=== PATIENT | female | born 1960 ===

== ENCOUNTER 2016-11-15 04:21 | Emergency (ER) | payer SELFPAY ==
--- NOTE | 2016-11-15 04:28 | C.PDOC ---
History Of Present Illness Patient presents with some right sided chest pain since yesterday. Patient states she has dextrocadia. No n/v/. atient also states she has had some fever. Speaking in complete sentences Time Seen by Provider: 11/15/16 04:27 History Per: Patient History/Exam Limitations: no limitations Onset/Duration Of Symptoms: Days Current Symptoms Are (Timing): Still Present Context: Other Severity: Moderate Pain Scale Rating Of: 4 Quality: Dull, Aching Associated Symptoms: denies: Nausea, Dyspnea Modifying Factors: None Exacerbating Factors: None Alleviating Factors: None Recent travel outside of the [place] States: No Additional History Per: Family Past Medical History Reviewed: Historical Data, Nursing Documentation, Vital Signs Vital Signs: Last Vital Signs Temp 99.7 F H 11/15/16 06:29 Pulse 97 H 11/15/16 06:29 Resp 18 11/15/16 06:29 BP 111/67 11/15/16 06:29 Pulse Ox 95 11/15/16 06:29 Family History: States: No Known Family Hx Review Of Systems Constitutional: Negative for: Fever, Chills Eyes: Negative for: Redness ENT: Negative for: Throat Pain Cardiovascular: Negative for: Chest Pain, Palpitations Respiratory: Negative for: Shortness of Breath Gastrointestinal: Negative for: Nausea, Vomiting Genitourinary: Negative for: Dysuria Musculoskeletal: Negative for: Back Pain Skin: Negative for: Rash, Lesions Neurological: Negative for: Weakness Psych: Negative for: Anxiety Physical Exam - Physical Exam Appears: Non-toxic Skin: Warm, Dry Head: Normacephalic Eye(s): bilateral: Normal Inspection Oral Mucosa: Moist Neck: Supple Chest: Symmetrical, Tenderness (right sided ) Cardiovascular: Rhythm Regular Respiratory: No Rales, No Rhonchi, No Wheezing Gastrointestinal/Abdominal: Soft, No Tenderness Back: No CVA Tenderness Extremity: Normal ROM Extremity: Bilateral: Atraumatic, Normal Color And Temperature Pulses: Left Dorsalis Pedis: Normal, Right Dorsalis Pedis: Normal Neurological/Psych: Oriented x3, Normal Speech, Normal Cognition Gait: Steady ED Course And Treatment - Laboratory Results Result Diagrams: 11/15/16 04:50 11/15/16 04:50 ECG: Interpreted By Me, Viewed By Me ECG Rhythm: Sinus Rhythm (98), R BBB O2 Sat by Pulse Oximetry: 98 Pulse Ox Interpretation: Normal - Radiology CXR: Interpreted by Me, Viewed By Me Progress Note: r sided ekg nsr 97 bpm, rbbb, nsstt changes Disposition Counseled Patient/Family Regarding: Studies Performed, Diagnosis - Disposition Disposition Time: 04:28 Condition: FAIR - Clinical Impression Clinical Impression: Chest pain, Fever Physician Patient Turnover Patient Signed Over To: Lon Pantoja Handoff Comments: pending cxr, ua and re-eval/dispo
[2016-11-15] MEDS ORDERED: Aspirin 325 mg EC Tablets PO STA (04:43)
[2016-11-15 04:53] LABS: BASO % 0.7 % (0.0-2.0); EOS % 0.5 % (0.0-4.0); HEMATOCRIT 37.5 % (34.0-47.0); LYMPH # 0.3 K/uL (1.0-4.3); LYMPH % 5.3 % (20.0-40.0); MEAN CELL VOLUME 84.2 fL (81.0-99.0); MEAN CORPUSCULAR HEMOGLOBIN 28.6 pg (27.0-31.0); MEAN CORPUSCULAR HGB CONC 33.9 g/dL (33.0-37.0); MEAN PLATELET VOLUME 7.5 fL (7.2-11.7); MONO # 0.6 K/uL (0.0-0.8); MONO % 8.7 % (0.0-10.0); PLATELET COUNT 199 K/uL (130-400); RED CELL DISTRIBUTION WIDTH 14.6 % (11.5-14.5); WHITE BLOOD COUNT 6.5 K/uL (4.8-10.8)
[2016-11-15 05:00] LABS: INR 1.1
[2016-11-15 05:08] LABS: CHLORIDE 102 mmol/L (98-107); SODIUM 140 mmol/L (132-148)
[2016-11-15 05:11] LABS: ALB/GLOB RATIO 1.2 (1.0-2.1); ALKALINE PHOSPHATASE 105 U/L (38-126); ALT/SGPT 58 U/L (9-52); AST/SGOT 36 U/L (14-36); BILIRUBIN,TOTAL 0.5 mg/dL (0.2-1.3); BLOOD UREA NITROGEN 17 mg/dL (7-17); CALCIUM 9.3 mg/dl (8.6-10.4); CARBON DIOXIDE 21 mmol/L (22-30); GFR AFRICAN-AMERICAN > 60; GLUCOSE,RANDOM 126 mg/dL (65-105); TOTAL PROTEIN 7.9 g/dL (6.3-8.3)
[2016-11-15 06:18] LABS: EOSINOPHIL 1 % (0-4); NEUTROPHIL 84 % (50-75); TOTAL CELLS COUNTED 100
[2016-11-15 07:33] LABS: RBC URINE 1 /hpf (0-3); URINE BILIRUBIN NEGATIVE (NEGATIVE); URINE BLOOD 1+ (NEGATIVE); URINE COLOR Yellow (YELLOW); URINE GLUCOSE (UA) NORMAL (Normal); URINE KETONE NEGATIVE (NEGATIVE); URINE LEUKOCYTE ESTERASE NEG Leu/uL (Negative); URINE PROTEIN NEGATIVE (NEGATIVE); URINE UROBILINOGEN NORMAL mg/dL (0.2-1.0); WBC URINE < 1 /hpf (0-5)
--- NOTE | 2016-11-15 07:36 | RAD ---
PROCEDURE: CHEST RADIOGRAPH, 1 VIEW HISTORY: fever COMPARISON: None available. FINDINGS: LUNGS: There is volume loss of the right lung with hazy density at the inferior lung zones suggestive of probable atelectasis although infiltrate is not completely excluded. No air bronchograms are identified. Small right pleural effusion identified but thoracostomy sulcus. Left chest appears clear. Mediastinal shift is slight toward the right but the patient is also rotated toward the right. No pneumothorax PLEURA: Discussed above. CARDIOVASCULAR: Cardiac size appears normal. Left hilar vascular markings appears somewhat prominent but there is no definite cephalization appreciate this time. This may be a function rotation to the right. Follow-up chest radiography advised. OSSEOUS STRUCTURES: No significant abnormalities. VISUALIZED UPPER ABDOMEN: Normal. OTHER FINDINGS: None. IMPRESSION: Medial right basilar atelectasis or infiltrate with small right pleural effusion. Volume loss the right lung is identified mildly.
[2016-11-15 07:43] VITALS: BP 95/51; PULSE 92; RESP 20; TEMP 100.3; O2SAT 95
--- NOTE | 2016-11-26 00:43 | CARD ---
APPROVED REPORT EKG Measurement Heart [id number] <Conclusion> Normal sinus rhythm Incomplete right bundle branch block Nonspecific T wave abnormality Abnormal ECG
== END 2016-11-15 08:02 | disposition home or self-care (01) ==
LOC: C.ER 04:21
DX: R07.89 Other chest pain (principal); R50.9 Fever, unspecified
CPT/HCPCS: 71010; 80053; 81001; 84484; 84703; 85025; 85610; 85730; 96374; 99284; J2405

== ENCOUNTER 2017-01-22 12:29 | Emergency (ER) | payer OTHER ==
[2017-01-22 13:00] VITALS: BP 159/93; PULSE 69; RESP 19; TEMP 97.7; O2SAT 97
--- NOTE | 2017-01-22 13:21 | C.PDOC ---
History Of Present Illness 56 y/o female from [facility] with a hx of HTN, c/o rectal itching and swelling for the last few weeks. Patient has a hx of hemorrhoids since her last , but the last few weeks symptoms has been worse. Patient notes using Vaseline to the area and reports her bowel movement causes increase itchiness. Denies fever, chills, nausea, vomiting, or headache. No lightheadedness or rash. Time Seen by Provider: 01/22/17 13:07 Chief Complaint (Nursing): GI Problem History Per: Patient History/Exam Limitations: no limitations Onset/Duration Of Symptoms: Days (few weeks) Current Symptoms Are (Timing): Still Present Severity: Mild Additional History Per: Patient Past Medical History Reviewed: Historical Data, Nursing Documentation, Vital Signs Vital Signs: Last Vital Signs Temp 97.7 F 01/22/17 12:57 Pulse 69 01/22/17 12:57 Resp 19 01/22/17 12:57 BP 159/93 H 01/22/17 12:57 Pulse Ox 97 01/22/17 13:53 - Medical History PMH: HTN, Hypercholesterolemia Family History: States: Unknown Family Hx - Social History Hx Alcohol Use: No Hx Substance Use: No - Immunization History Hx Tetanus Toxoid Vaccination: No Hx Influenza Vaccination: No Hx Pneumococcal Vaccination: No Review Of Systems Except As Marked, All Systems Reviewed And Found Negative. Constitutional: Negative for: Fever, Chills Cardiovascular: Negative for: Light Headedness Gastrointestinal: Positive for: Other (Rectal itching and swelling). Negative for: Nausea, Vomiting, Abdominal Pain Skin: Negative for: Rash Neurological: Negative for: Headache Physical Exam - Physical Exam Appears: Non-toxic, No Acute Distress Skin: Warm, Dry Head: Atraumatic, Normacephalic Cardiovascular: Rhythm Regular, No Murmur Respiratory: Normal Breath Sounds, No Rales, No Rhonchi, No Wheezing Gastrointestinal/Abdominal: Soft, No Tenderness Rectal: Hemorrhoids (External at the 6 o'clock eli. No bleeding, internal hemorrhoids, fissure, or rash) Neurological/Psych: Oriented x3 ED Course And Treatment O2 Sat by Pulse Oximetry: 97 (RA) Pulse Ox Interpretation: Normal Medical Decision Making Medical Decision Making: On reassessment, patient is resting comfortably, and is in no acute distress. Patient was instructed to follow up with physician/clinic in 1-2 days for further evaluation. Disposition Counseled Patient/Family Regarding: Diagnosis, Need For Followup, Rx Given - Disposition Referrals: [facility] [Outside] Disposition: HOME/ ROUTINE Disposition Time: 13:17 Condition: STABLE Prescriptions: Hard Fat/Phenylephrine [place] [Hemorrhoidal 88.7%-0.25%] 1 sup FL DAILY #10 sup Instructions: Hemorrhoids (ED) Forms: Gen Discharge Inst Irish, [employer] (Irish) - POA Present On Arrival: None - Clinical Impression Clinical Impression: Hemorrhoids - Scribe Statement The provider has reviewed the documentation as recorded by the Scribe Colt lance All medical record entries made by the Scribe were at my direction and personally dictated by me. I have reviewed the chart and agree that the record accurately reflects my personal performance of the history, physical exam, medical decision making, and the department course for this patient. I have also personally directed, reviewed, and agree with the discharge instructions and disposition.
== END 2017-01-22 13:28 | disposition home or self-care (01) ==
LOC: C.ER 12:29
DX: K64.4 Residual hemorrhoidal skin tags (principal); E78.00 Pure hypercholesterolemia, unspecified; I10 Essential (primary) hypertension

== ENCOUNTER 2017-09-10 07:10 | Day surgery (SDC) | payer OTHER ==
[2017-09-10] MEDS ORDERED: Propofol 10 mg/ml Inj (20 ML) ONE ×2 (09:14→09:30)
[2017-09-10] MEDS ORDERED: Lactated Ringer's 1,000 ML IV ONE (09:15)
--- NOTE | 2017-09-10 09:20 | CP.SDSHP ---
Same Day Surgery H & P - History Proposed Procedure: colonosocpy Pre-Op Diagnosis: rectal bleeding - Previous Medical/Surgical History Cardiac: Hypertension - Allergies Allergies: Allergies aspirin Allergy (Verified 09/10/17 07:37) RASH Penicillins Allergy (Verified 09/10/17 07:37) RASH - Physical Exam Vital Signs: Vital Signs 09/10/17 07:39 Temperature 97.5 F L Pulse Rate 60 Respiratory 19 Rate Blood Pressure 123/80 O2 Sat by Pulse 100 Oximetry Mental Status: Alert & Oriented x3 Neuro: WNL Heart: WNL Lungs: WNL GI: WNL - {Optional Preform as Required} Abdomen: WNL - Impression Impression: r bleed Pt. Evaluated Today:Candidate for Anesthesia & Procedure: Yes - Date & Time Date: 09/10/17 Time: 09:05 Short Stay Discharge - Short Stay Discharge Admitting Diagnosis/Reason for Visit: RECTAL BLEEDING Disposition: HOME/ ROUTINE
[2017-09-10] MEDS ORDERED: Lidocaine Hydrochloride 5 ML INJ ONE (09:29)
[2017-09-10 09:55] VITALS: TEMP 96.8
[2017-09-10 09:57] VITALS: O2SAT 100
[2017-09-10 10:47] VITALS: BP 111/79; PULSE 62; RESP 16
== END 2017-09-10 10:45 | disposition home or self-care (01) ==
LOC: C.ENDO 07:10
PROVIDERS: ATTEND Internal Medicine Gastroenterology
DX: D12.8 Benign neoplasm of rectum (principal); K64.1 Second degree hemorrhoids; I10 Essential (primary) hypertension; Z88.0 Allergy status to penicillin
CPT/HCPCS: 45380; 88305; J2704; J7120

== ENCOUNTER 2017-10-22 10:36 | Emergency (ER) | payer OTHER ==
[2017-10-22 10:45] VITALS: BMI 35.0
[2017-10-22] MEDS ORDERED: Sodium Chloride 0.9% 1,000 ML IV STA (12:21)
[2017-10-22] MEDS ORDERED: Sodium Chloride 0.9% 1,000 ML ONE (12:35)
[2017-10-22 12:46] LABS: BASO # 0.1 K/uL (0.0-0.2); EOS # 0.1 K/uL (0.0-0.7); EOS % 2.1 % (0.0-4.0); HEMOGLOBIN 13.2 g/dL (11.0-16.0); LYMPH # 1.9 K/uL (1.0-4.3); LYMPH % 29.3 % (20.0-40.0); MEAN CELL VOLUME 84.7 fL (81.0-99.0); MEAN CORPUSCULAR HEMOGLOBIN 28.7 pg (27.0-31.0); MEAN CORPUSCULAR HGB CONC 33.9 g/dL (33.0-37.0); MEAN PLATELET VOLUME 7.8 fL (7.2-11.7); MONO # 0.3 K/uL (0.0-0.8); MONO % 4.1 % (0.0-10.0); NEUT % 63.5 % (50.0-75.0); NRBC % 0.2 % (0.0-2.0); RBC 4.59 Mil/uL (3.80-5.20); RED CELL DISTRIBUTION WIDTH 14.7 % (11.5-14.5); WHITE BLOOD COUNT 6.4 K/uL (4.8-10.8)
[2017-10-22 12:52] LABS: SQUAMOUS EPITHIAL 8 /hpf (0-5); URINE AMORPHOUS SEDIMENT FEW /ul (<OCC); URINE BILIRUBIN NEGATIVE (NEGATIVE); URINE BLOOD 1+ (NEGATIVE); URINE CLARITY Turbid (Clear); URINE COLOR Amber (YELLOW); URINE GLUCOSE (UA) NORMAL (Normal); URINE LEUKOCYTE ESTERASE NEG Leu/uL (Negative); URINE PROTEIN NEGATIVE (NEGATIVE); URINE UROBILINOGEN NORMAL mg/dL (0.2-1.0)
--- NOTE | 2017-10-22 12:52 | C.PDOC ---
History Of Present Illness 57-year-old female, presents to the emergency department complaining of dizziness, and abdominal discomfort, associated with nausea and non-bloody/non- bilious vomiting. Patient notes everything is spinning when she is trying to move her head. She denies fever, chills, headache, chest pain, shortness of breath or any other associated symptoms. No other complaints at this time. Time Seen by Provider: 10/22/17 11:55 Chief Complaint (Nursing): Dizziness/Lightheaded History Per: Patient History/Exam Limitations: no limitations Current Symptoms Are (Timing): Still Present Past Medical History Reviewed: Historical Data, Nursing Documentation, Vital Signs Vital Signs: Last Vital Signs Temp 97.4 F L 10/22/17 15:24 Pulse 60 10/22/17 15:24 Resp 16 10/22/17 15:24 BP 137/82 10/22/17 15:24 Pulse Ox 98 10/22/17 17:43 - Medical History PMH: Gastritis, HTN, Hypercholesterolemia Denies: Chronic Kidney Disease Other PMH: Dextracardia Surgical History: Endoscopy Family History: States: No Known Family Hx - Social History Hx Alcohol Use: No Hx Substance Use: No - Immunization History Hx Tetanus Toxoid Vaccination: No Hx Influenza Vaccination: No Hx Pneumococcal Vaccination: No Review Of Systems Constitutional: Negative for: Fever, Chills Respiratory: Negative for: Shortness of Breath Gastrointestinal: Positive for: Nausea, Vomiting. Negative for: Abdominal Pain Musculoskeletal: Negative for: Back Pain Skin: Negative for: Rash Neurological: Positive for: Dizziness. Negative for: Weakness, Numbness, Headache Physical Exam - Physical Exam Appears: Non-toxic, No Acute Distress Skin: Normal Color, Warm, Dry, No Rash Head: Atraumatic, Normacephalic Eye(s): bilateral: Normal Inspection Nose: Normal Oral Mucosa: Moist Lips: Normal Appearing Neck: Normal ROM Cardiovascular: Rhythm Regular, No Murmur Respiratory: Normal Breath Sounds, No Accessory Muscle Use Gastrointestinal/Abdominal: Soft, No Tenderness Back: Normal Inspection Extremity: Normal ROM, No Deformity, No Swelling Neurological/Psych: Oriented x3, Normal Speech ED Course And Treatment - Laboratory Results Result Diagrams: 10/22/17 12:40 10/22/17 12:40 ECG: Interpreted By Me, Viewed By Me ECG Rhythm: Sinus Rhythm, R BBB (INCOMPLETE) ECG Interpretation: No Acute Changes Rate From EC O2 Sat by Pulse Oximetry: 98 Pulse Ox Interpretation: Normal (RA) - Other Rad CXR X-Ray: Viewed By Me, Read By Radiologist Interpretation: Accession No. : [id number]. Patient Name / ID : VON MANZANARES / [id number]. Exam Date : 10/22/2017 12:27:33 ( Approved ). Study Comment : Sex / Age : F / 57Y. Creator : Kelli Garcia MD. Dictator : Kelli Garcia MD. Sensory Scientist : Desk Assistant : Kelli Garcia MD. Approver2 : Report Date : 10/22/2017 13:15:53. My Comment : . Date of service: 10/22/2017. PROCEDURE: CHEST RADIOGRAPH, 1 VIEW. HISTORY: Chest discomfort and dizziness. COMPARISON: 07/20/2017. FINDINGS: LUNGS: The lungs are well inflated. The right lung is hypoplastic. There is moderate pulmonary venous congestion. PLEURA: No pneumothorax or pleural fluid seen. There is right pleural thickening. CARDIOVASCULAR: The heart is normal in size. There is an apparent persistent linear density in the right retrocardiac region. OSSEOUS STRUCTURES: No significant abnormalities. VISUALIZED UPPER ABDOMEN: Normal. OTHER FINDINGS: None. IMPRESSION: No active pulmonary disease. 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 Please correlate with echocardiogram. - CT Scan/US CT head Other Rad Studies (CT/US): Read By Radiologist, Radiology Report Reviewed CT/US Interpretation: Accession No. : [id number]. Patient Name / ID : VON MANZANARES / [id number]. Exam Date : 10/22/2017 13:13:21 ( Approved ). Study Comment : Sex / Age : F / 57Y. Creator : Kimber Ames. Dictator : Kelli Garcia MD. Sensory Scientist : Desk Assistant : Kelli Garcia MD. Approver2 : Report Date : 10/22/2017 13:12:50. My Comment : . Date of service: 10/22/2017. PROCEDURE: CT HEAD WITHOUT CONTRAST. HISTORY: Dizziness and vomiting. COMPARISON: None available. TECHNIQUE: Axial computed tomography images were obtained through the head/brain without intravenous contrast. Radiation dose: Total exam DLP = 810.48 mGy-cm. This CT exam was performed using one or more of the following dose reduction techniques: Automated exposure control, adjustment of the mA and/or kV according to patient size, and/or use of iterative reconstruction technique. FINDINGS: HEMORRHAGE: No intracranial hemorrhage. BRAIN: Lane-white matter differentiation is preserved. There is no mass, mass effect or abnormal extra- axial fluid collection. There is no territorial infarction. The midline sagittal structures are normal. VENTRICLES: The ventricles are normal in size , shape and configuration. CALVARIUM: The skull base and calvarium are normal. PARANASAL SINUSES: Predominantly clear. MASTOID AIR CELLS: Predominantly clear. OTHER FINDINGS: None. IMPRESSION: No acute intracranial abnormality. Medical Decision Making Medical Decision Making: Plan: * EKG * CT Head * Bloodwork * Chest X-Ray * Meclizine po , IVFs * UA * Reassess and Disposition * On re-evaluation patient feels better, ambulatory, tolerates po. * Patient is stable to be d/c home with PMD and Neurologist follow up. Disposition - Disposition Referrals: Aditya Jay MD [Staff Provider] - Disposition: HOME/ ROUTINE Disposition Time: 15:10 Condition: IMPROVED Additional Instructions: Follow up with PMD within 1-2 days. Return to ED if feel worse. Prescriptions: Meclizine [Meclizine*] 25 mg PO Q6 #30 tab Instructions: Vertigo (a Type of Dizziness) (DC) Forms: [employer] (Uruguayan) Print Language: SUDANESE - Clinical Impression Clinical Impression: Vertigo - Scribe Statement The provider has reviewed the documentation as recorded by the Scribe (Mesfin Stockton) All medical record entries made by the Scribe were at my direction and personally dictated by me. I have reviewed the chart and agree that the record accurately reflects my personal performance of the history, physical exam, medical decision making, and the department course for this patient. I have also personally directed, reviewed, and agree with the discharge instructions and disposition.
[2017-10-22 13:04] LABS: PARTIAL THROMBOPLASTIN TIME 34 SECONDS (21-34); PROTHROMBIN TIME 10.9 SECONDS (9.7-12.2)
[2017-10-22 13:05] LABS: ALB/GLOB RATIO 1.4 (1.0-2.1); ALBUMIN 4.5 g/dL (3.5-5.0); ALT/SGPT 27 U/L (9-52); AST/SGOT 26 U/L (14-36); BLOOD UREA NITROGEN 18 mg/dL (7-17); CALCIUM 9.4 mg/dl (8.6-10.4); D DIMER < 200 ng/mlDDU (0-243); GFR AFRICAN-AMERICAN > 60; GFR NON-AFRICAN AMERICAN > 60
[2017-10-22 13:11] LABS: CK-MB 0.66 ng/mL (0.0-3.38)
--- NOTE | 2017-10-22 13:27 | CT ---
Date of service: 10/22/2017 PROCEDURE: CT HEAD WITHOUT CONTRAST. HISTORY: Dizziness and vomiting COMPARISON: None available. TECHNIQUE: Axial computed tomography images were obtained through the head/brain without intravenous contrast. Radiation dose: Total exam DLP = 810.48 mGy-cm. This CT exam was performed using one or more of the following dose reduction techniques: Automated exposure control, adjustment of the mA and/or kV according to patient size, and/or use of iterative reconstruction technique. FINDINGS: HEMORRHAGE: No intracranial hemorrhage. BRAIN: Lane-white matter differentiation is preserved. There is no mass, mass effect or abnormal extra-axial fluid collection. There is no territorial infarction. The midline sagittal structures are normal. VENTRICLES: The ventricles are normal in size, shape and configuration. CALVARIUM: The skull base and calvarium are normal. PARANASAL SINUSES: Predominantly clear. MASTOID AIR CELLS: Predominantly clear. OTHER FINDINGS: None. IMPRESSION: No acute intracranial abnormality.
[2017-10-22 13:35] VITALS: RESP 16
--- NOTE | 2017-10-22 13:55 | RAD ---
Date of service: 10/22/2017 PROCEDURE: CHEST RADIOGRAPH, 1 VIEW HISTORY: Chest discomfort and dizziness COMPARISON: 07/20/2017. FINDINGS: LUNGS: The lungs are well inflated. The right lung is hypoplastic. There is moderate pulmonary venous congestion. PLEURA: No pneumothorax or pleural fluid seen. There is right pleural thickening. CARDIOVASCULAR: The heart is normal in size. There is an apparent persistent linear density in the right retrocardiac region OSSEOUS STRUCTURES: No significant abnormalities. VISUALIZED UPPER ABDOMEN: Normal. OTHER FINDINGS: None. IMPRESSION: No active pulmonary disease. 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 Please correlate with echocardiogram.
[2017-10-22 15:10] VITALS: O2SAT 98
[2017-10-22 15:26] VITALS: BP 137/82; PULSE 60; TEMP 97.4
--- NOTE | 2017-10-23 20:54 | CARD ---
APPROVED REPORT Date of service: 10/22/2017 EKG Measurement Heart [id number] <Conclusion> Normal sinus rhythm Incomplete right bundle branch block Borderline ECG
== END 2017-10-22 15:25 | disposition home or self-care (01) ==
LOC: C.ER 10:36
DX: R42 Dizziness and giddiness (principal)
CPT/HCPCS: 70450; 71045; 80053; 81001; 82550; 82553; 84484; 85025; 85378; 85610; 85730; 93005; 96360; 99285; J7030